=== PATIENT | male | born 1935 | race Caucasian/White ===

== ENCOUNTER 2018-12-29 09:27 | Outpatient (CLI) | payer MEDICARE, OTHER | END 2018-12-29 09:28 | disposition home or self-care (01) | LOC: RAD 09:27 ==

== ENCOUNTER 2019-01-24 11:50 | Outpatient (CLI) | payer MEDICARE, OTHER | END 2019-01-24 11:51 | disposition home or self-care (01) | LOC: RAD 11:50 ==

== ENCOUNTER 2019-02-06 07:48 | Outpatient (CLI) | payer MEDICARE, OTHER | END 2019-02-06 07:49 | disposition home or self-care (01) | LOC: RAD 07:48 | DX: R51 Headache (principal); F03.90 Unspecified dementia, unspecified severity, without behavioral disturbance, psychotic disturbance, mood disturbance, and anxiety ==